=== PATIENT | male | born 1990 | race Caucasian/White ===

== ENCOUNTER 2025-07-18 17:55 | Emergency (ER) | payer OTHER ==
[~2025-07-18] VITALS: Ht 177.8 cm; Wt 82.0 kg
[2025-07-18 18:04] VITALS: O2SAT 98
[2025-07-18] MEDS: HYDROCODONE/ACETAMINOPHEN 5/325MG TABLET PO ONE (19:58)
[2025-07-18] MEDS: TETANUS, DIPHTHERIA, PERTUSSIS VAC/PF 0.5ML (>10YR OLD) IM ONE (19:59)
[2025-07-18] MEDS: LIDOCAINE HCL 1% 20ML VIAL INFIL ONE (20:25)
[2025-07-18] MEDS ORDERED: IBUP-1455 MT (21:10)
[2025-07-18 21:53] VITALS: BP 111/65; PULSE 99; RESP 18; TEMP 37.1; O2SAT 99
== END 2025-07-18 21:54 | disposition home or self-care (01) ==
LOC: ER 17:55
DX: S61.216A Laceration without foreign body of right little finger without damage to nail, initial encounter (principal); S61.412A Laceration without foreign body of left hand, initial encounter; W26.0XXA Contact with knife, initial encounter; Y93.89 Activity, other specified; Y92.89 Other specified places as the place of occurrence of the external cause; Y99.8 Other external cause status
CPT/HCPCS: 99283; 73130; 90715; 12002; 90471; J2003; A6449